=== PATIENT | male | born 1990 | race Caucasian/White ===

== ENCOUNTER 2024-05-07 18:51 | Emergency (ER) | payer BC, SELFPAY ==
--- NOTE | 2024-05-07 19:10 | ED.URI ---
HPI - URI/Sore Throat General Chief Complaint: Upper Respiratory Symptoms Stated Complaint: fever, pneumonia, cough Time Seen by Provider: 05/07/24 19:10 History of Present Illness HPI Narrative: 33-year-old male with no reported past medical history presents with 1 day of fever and nonproductive cough. Patient states that his younger child was sick with pneumonia 1 week ago and he and his are concerned that he may have caught whatever the child was affected with. Took 200 mg of ibuprofen earlier this morning. Related Data Home Medications Medication Instructions Recorded Confirmed No Known Home Medications 05/07/24 05/07/24 Allergies Allergy/AdvReac Type Severity Reaction Status Date / Time No Known Drug Allergies Allergy Verified 05/07/24 19:11 Patient History Social History Smoking Status: Never smoker Exam Initial Vital Signs Initial Vital Signs: Vital Signs Temperature 100.5 F H 05/07/24 19:11 Pulse Rate 110 H 05/07/24 19:11 Respiratory Rate 16 05/07/24 19:11 Blood Pressure 132/76 05/07/24 19:11 Pulse Oximetry 97 05/07/24 19:11 Oxygen Delivery Method Room Air 05/07/24 19:11 Const: Awake, alert, no acute distress, nontoxic appearing Cardiac: Tachycardia, regular rhythm RESP: unlabored, clear bilaterally, no wheezing GI: Soft, nontender, nondistended, no rebound, no guarding Skin: Warm, Dry, intact, no rashes Neuro: AO x3, CN II-XII grossly intact, moves all extremities Course Orders Ordered: ED Orders 05/07/24 19:10 Chest [XR chest 2V] Stat Discontinued Medications Ketorolac Tromethamine (Ketorolac 30 Mg/Ml Vial) 30 mg IM NOW ONE Stop: 05/07/24 20:18 Last Admin: 05/07/24 20:26 Dose: 30 mg Documented By: CORNELL Vital Signs Vital signs: Vital Signs - 8 hr 05/07/24 19:11 05/07/24 20:39 Temperature 100.5 F H Pulse Rate 110 H 103 H Respiratory Rate 16 18 Blood Pressure 132/76 140/85 Pulse Oximetry 97 94 Oxygen Delivery Method Room Air Room Air MDM - URI/Sore Throat Imaging Data Chest x-ray: Radiologist's Impression: PROCEDURE: XR CHEST 2V INDICATIONS: fever, cough x1 day TECHNIQUE: 2 views of the chest were acquired. COMPARISON: None. FINDINGS: Surgical changes and devices: None. Lungs and pleura: Lungs are clear. No pleural effusions or pneumothorax. Mediastinum: Mediastinal contours are normal. Heart size is normal. Bones and chest wall: No suspicious bony abnormalities. Soft tissues appear unremarkable. IMPRESSION: No acute cardiopulmonary abnormality is seen. Dictated by: Luis Garvey M.D. on 05/07/2024 at 20:06 [facility] Narrative Medical decision making narrative: Well-appearing patient with 1 day of symptoms. Lungs are clear to auscultation bilaterally, saturating well on room air. CXR 2 view negative for sign of infectious process. Patient counseled on using Tylenol and ibuprofen as well as expect to rinse such as Mucinex for symptoms at home. Note for work provided Discharge Plan Departure Patient Disposition: Home Clinical Impression: Upper respiratory infection Instructions: DI for Viral Upper Respiratory Infection -- Adult Activity Restrictions/Additional Instructions: Your x-ray today did not show any signs of pneumonia. Alternate 400 mg of ibuprofen and 1000 mg of Tylenol every 4-6 hours as needed for pain or fever. Make sure to stay hydrated by drinking plenty of fluids. You may also use [id number] medication such as Mucinex to loosen respiratory secretions and help you cough up more mucus. Prescriptions: No Action No Known Home Medications Referrals: Miscellaneous,Doctor, MD [Primary Care Provider] - Stand Alone Forms: Patient Portal/API, Work Release Note
[2024-05-07 19:11] VITALS: BP 132/76; PULSE 110; RESP 16; TEMP 38.1; O2SAT 97; BMI 26.2
--- NOTE | 2024-05-07 19:18 | PC.NURSE ---
Pt states that only vomited once yesterday
[2024-05-07] MEDS: KETOROLAC 30 MG/ML VIAL IM (20:26)
[2024-05-07 20:39] VITALS: BP 140/85; PULSE 103; RESP 18; O2SAT 94
== END 2024-05-07 20:40 | disposition home or self-care (01) ==
PROVIDERS: Emergency Provider Emergency Medicine
DX: J06.9 Acute upper respiratory infection, unspecified (principal); R05.9 Cough, unspecified
CPT/HCPCS: 71046; 96372; 99283; J1885